=== PATIENT | female | born 1960 | race Caucasian/White ===

== ENCOUNTER 2016-11-22 15:55 | Emergency (ER) | payer OTHER ==
[~2016-11-22] VITALS: Ht 160 cm; Wt 79.9 kg
--- OUTSIDE RECORDS SUMMARY | 2016-11-22 16:06 | External Medical Summary Rpt | CCD ---
Author Author [employer] Organization [employer] Address Unknown Phone Unavailable Purpose Continuity of Care Document - through 2016
--- OUTSIDE RECORDS SUMMARY | 2016-11-22 16:06 | External Medical Summary Rpt | CCD ---
Author Author , MATTHEW CASTRO Address Unknown Phone [email or web address] Purpose Continuity of Care Document - 06-03-2016 through 2016 Problems Code Diagnosis DOS Provider Status E11.9 TYPE 2 09-22-2016 DIABETES MELLITUS WITHOUT COMPLICATIO NS E78.00 PURE 09-22-2016 HYPERCHOLES TEROLEMIA, UNSPECIFIED I10 ESSENTIAL 09-22-2016 (PRIMARY) HYPERTENSIO N R11.10 VOMITING, 09-22-2016 UNSPECIFIED R42 DIZZINESS 09-22-2016 AND GIDDINESS Z88.0 ALLERGY 09-22-2016 STATUS TO PENICILLIN Z12.31 ENCOUNTER 06-03-2016 FOR SCREENING MAMMOGRAM FOR MALIGNANT NEOPLASM OF BREAST
--- OUTSIDE RECORDS SUMMARY | 2016-11-22 16:06 | External Medical Summary Rpt | CCD ---
Author Author , MATTHEW CASTRO Address Unknown Phone [email or web address] Purpose Continuity of Care Document - 06-03-2016 [...]
--- OUTSIDE RECORDS SUMMARY | 2016-11-22 16:06 | External Medical Summary Rpt ---
Author Author [employer] Address Unknown Phone Unavailable
--- OUTSIDE RECORDS SUMMARY | 2016-11-22 16:06 | External Medical Summary Rpt | CCD ---
Demographics Preferred Language Yoruba Marital Status Unknown Advent Affiliation Unknown Race Unknown Ethnic Group Unknown Author Author , MATTHEW CASTRO Address Unknown Phone Immunization Unable to retrieve immunization data due to connection failure with Immunization Registry. Please try again later.
--- OUTSIDE RECORDS SUMMARY | 2016-11-22 16:06 | External Medical Summary Rpt | CCD ---
Demographics Preferred Language Danish Marital Status Unknown Worship Affiliation Unknown Race Unknown Ethnic Group Unknown Author Author , MATTHEW CASTRO Address Unknown Phone Immunization Unable to retrieve immunization data due to connection failure with Immunization Registry. Please try again later.
[2016-11-22] MEDS ORDERED: METFORMIN 500M500 MG PO (17:08)
--- NOTE | 2016-11-22 17:35 | Urgent Treatment Center Report ---
History of Present Issue Date/Time Seen by Provider 11/22/16 1732 Visit Reason Pt arrived:Walked Presenting Problem:PT C/O OF SORE THROAT, SINUS PRESSURE, HEAD AND CHEST CONGESTION Location if Accident: Onset of symptoms date/time:/ or onset unknown for:MEDICAL HX UNKNOWN Have you (or family members/close friends) recently traveled outside the [place]? N If Yes, where/when: Have you had exposure to infectious disease within the past month? TB? Other? Specify: c/o sore throat x 1 week. Worse at night and in the morning. Started w/ rhinorrhea and cough. PND now as well. Cough progressing. No SOA, wheezing. No improvement with delsum or mucinex. ricolla cough drops help briefly. Denies fever. No known sick contacts. Hx DM. Unsure of blood glucose or A1C Source patient Exam Limitations no limitations ALLERGIES Coded Allergies: Penicillins (11/22/16) Home Medications Reported Medications METFORMIN HCL (Metformin 500MG) (Unknown Dose) PO BID 1 Days History Medical History General CAD? No Angina: No [place]: No Hypertension? No Hyperlipidemia? No CHF? No DVT? No PE? No COPD? No Asthma? No Anemia? No GERD? No Gastric ulcers? No GI Bleed? No Hernia? No Thyroid Problems? No Hypothyroidism? No CVA? No Seizures? No Diabetes? Yes Insulin Dependent: No Insulin Pump: No Home FSBS? Yes Renal Insuffiency? No UTI? No Stones? No BPH? No Nephritic Syndrome? No Arthritis? Yes Migraines? No MRSA? No HIV? No TB? No Anxiety? No Depression? No Cancer? No More? No Immunization HX DT/Tetanus 1-4 Years Ago Surgical Hx Previous Surgery?Y Hysterectomy-Total Social History Smoking Hx Smoker: Never Smoker Tobacco: No Alcohol Alcohol: No Review of Systems All Other Systems Reviewed and Negative Constitutional see HPI, denies malaise Eyes denies drainage ENT see HPI. denies: ear discharge, throat swelling. Respiratory see HPI Gastrointestinal denies no symptoms reported Skin denies rash Psychiatric/Neurological denies headache Physical Exam Vital Signs Vital Signs Date Time Temp Pulse Resp B/P Pulse O2 O2 Flow FiO2 Ox Delivery Rate 11/22 1703 98.1 92 18 180/78 99 General Appearance normal appearance, no apparent distress Eye Exam - bilateral eye normal exam Ear, Nose, Throat mild nasal congestion, pedro EAC slightly erythematous but not painful, swollen or moist, clear PND and cobblestoning, no sinus tenderness Neck non-tender, supple Respiratory Status No: respiratory distress, productive cough, non productive cough. Lung Sounds anterior: lungs clear. posterior: lungs clear. bilateral: lungs clear. Cardiovascular regular rate/rhythm, no peripheral edema, no murmur Neurologic alert, oriented x 3 Mental status normal mood/affect Skin normal color, warm/dry Medical Decision Making LABS/Meds/Orders Pt receiving controlled substance in ED? No Results/Orders Laboratory Tests 11/22/16 172: Group A Strep Screen NOT DETECTED Orders Procedure Date/time Status [facility] STREP SCREEN 11/22 1726 Complete Departure Departure Time of Disposition 1741 Disposition DC Home or Self Care(routine) Clinical Impression Primary Impression: Upper respiratory virus Condition STABLE Referrals NO REFERRAL Primary care IMMEDIATELY for new or worsening symptoms OR no noticeable improvement over the next 48-72 hours. 911 for difficulty breathing or swallowing. Patient Instructions DI for Viral Upper Respiratory Infection -- Adult Additional Instructions * No sign of bacterial infection. Likely viral. Virus can take 7-14 days to run their course * Monitor Temp. FU if fevers develop * Encourage fluids, water, gatorade, powerade, pedialyte if /toddler/child * warm salt water gargles * warm fluids * sore throat lozenges * sleep elevated * humidifier/vaporizer * flonase 2 sprays each nostril daily but may take 2-3 days to notice improvement with it. * no bromfed due to DM * claritin 10mg daily * * Your throat swab was sent for culture. Those results are typically sent to your primary care. Be sure to follow up in 2-3 days if no improvement so they can review those results and treat if necessary. If you don't have primary care, I recommend you get one but in the mean time, you will have to return to a walk in clinic. Discharge Counseling Counseled pt/family regarding diagnosis, test results, medications/RX, home care, follow up needs at [id number]
[2016-11-22 17:46] VITALS: BP 180/78
== END 2016-11-22 17:46 | disposition home or self-care (01) ==
LOC: UTC 15:55
DX: J06.9 Acute upper respiratory infection, unspecified (principal); E11.9 Type 2 diabetes mellitus without complications; Z79.84 Long term (current) use of oral hypoglycemic drugs